=== PATIENT | male | born 1980 | race Caucasian/White ===

== ENCOUNTER 2022-01-03 13:41 | Emergency (ER) | payer OTHER ==
[2022-01-03 14:15] VITALS: PULSE 108
[2022-01-03] MEDS ORDERED: TORAdol 30 mg Injection IM ONE (14:25)
[2022-01-03] MEDS ORDERED: TORAdol 30 mg Injection ONE (14:29)
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
[2022-01-03 14:53] VITALS: BP 105/75
[2022-01-03 22:00] VITALS: O2SAT 97
== END 2022-01-03 14:50 | disposition home or self-care (01) ==
LOC: ED 13:41
DX: K02.9 Dental caries, unspecified (principal); K04.7 Periapical abscess without sinus; R60.0 Localized edema; R68.84 Jaw pain; Z72.0 Tobacco use
CPT/HCPCS: 96372; 99283; J1885